=== PATIENT | male | born 1950 | race Caucasian/White ===

== ENCOUNTER 2018-01-29 13:23 | Outpatient (CLI) | payer OTHER | END 2018-01-29 13:24 | disposition home or self-care (01) | LOC: BICRAD 13:23 | PROVIDERS: ATTEND Internal Medicine Cardiovascular Disease | DX: R06.02 Shortness of breath (principal) | CPT/HCPCS: 71046 ==

== ENCOUNTER 2018-03-04 16:39 | Outpatient (CLI) | payer OTHER ==
[2018-03-04 17:37] LABS: Prothrombin Time 12.8 SEC (12.0-14.7)
[2018-03-04 18:01] LABS: ALT (SGPT) 28 U/L (8-55); AST (SGOT) 22 U/L (5-34); Albumin 4.4 g/dL (3.4-4.8); Alkaline Phosphatase 56 U/L (40-150); Anion Gap 11 mmol/L (10-20); BUN (Urea Nitrogen) 15 mg/dL (8.4-25.7); Bilirubin, Total 0.4 mg/dL (0.2-1.2); Calc. Creatinine Clearance 0 mL/min (70-130); Calcium 9.5 mg/dL (7.8-10.44); Carbon Dioxide 27 mmol/L (23-31); Chloride 103 mmol/L (98-107); Estimated GFR-MDRD 64; Globulin 2.6 g/dL (2.4-3.5); Glucose 96 mg/dL (80-115); Potassium 3.8 mmol/L (3.5-5.1); Sodium 137 mmol/L (136-145)
[2018-03-04 18:06] LABS: #Eosinphils 0.1 thou/uL (0.0-0.7); #Lymphocytes 2.6 thou/uL (1.20-3.40); #Monocytes 0.9 thou/uL (0.11-0.59); #Neutrophils 3.4 thou/uL (1.40-6.50); %Basophils 0.5 % (0.0-1.0); %Eosinophils 0.8 % (0.0-10.0); %Lymphocytes 37.5 % (21.0-51.0); %Monocytes 12.4 % (0.0-10.0); %Neutrophils 48.8 % (42.0-75.0); Hemoglobin 14.8 g/dL (14.0-18.0); Mean Corpuscular HGB CONC 33.4 g/dL (32.0-36.0); Mean Corpuscular Hemoglobin 35.2 pg (27.0-31.0); PLT Morphology Comment Appears Adequate; Platelet Count 162 thou/uL (130-400); RBC Distribution Width 12.6 % (11.5-14.5); Red Blood Cell (RBC) Count 4.22 mill/uL (4.70-6.10)
--- NOTE | 2018-03-05 15:17 | EKG ---
Test Reason : Blood Pressure : / mmHG Vent. Rate : 078 BPM Atrial Rate : 078 BPM P-R Int : 208 ms QRS Dur : 108 ms QT Int : 388 ms P-R-T Axes : 049 -06 065 degrees QTc Int : 442 ms Normal sinus rhythm Incomplete right bundle branch block Cannot rule out Anterior infarct , age undetermined Abnormal ECG When compared with ECG of 23-DEC-2005 14:35, Incomplete right bundle branch block has replaced Non-specific intra-ventricular conduction delay Minimal criteria for Anterior infarct are now Present Confirmed by RAFAEL WESTON, SReginaldo ([id number]) on 03/05/2018 3:17:14 PM Referred By: CARMELINA Confirmed By:DR. Misty HALL MD
== END 2018-03-04 16:40 | disposition home or self-care (01) ==
LOC: LABBT 16:39
PROVIDERS: ATTEND Internal Medicine Cardiovascular Disease
DX: Z01.818 Encounter for other preprocedural examination (principal); R94.39 Abnormal result of other cardiovascular function study
CPT/HCPCS: 80053; 85025; 85610; 85730; 93005; 93010

== ENCOUNTER 2018-03-11 06:40 | Day surgery (SDC) | payer OTHER ==
[2018-03-04 16:48] VITALS: BMI 36.8
[2018-03-11] MEDS ORDERED: Lidocaine 1% (PF) 30 ML VIAL ONE (07:21)
[2018-03-11] MEDS ORDERED: Verapamil 5 MG/2 ML VIAL ONE (08:20)
[2018-03-11] MEDS ORDERED: Nitroglycerin 100MG/250ML BOT 250 ML ONE (08:20)
[2018-03-11] MEDS ORDERED: Heparin 10,000 UNITS/1 ML VIAL ONE (08:20)
[2018-03-11] MEDS ORDERED: Midazolam HCl 2 mg/2 ml Vial ONE (08:28)
[2018-03-11] MEDS ORDERED: traMADol HCl 50 MG TAB ONE (09:45)
[2018-03-11] MEDS ORDERED: Iopamidol 370 76% 100 ML VIAL ONE (10:43)
--- NOTE | 2018-03-11 12:54 | RAD ---
CHEST ONE VIEW: History: Pre op. Comparison: 01-29-18 FINDINGS: The lungs are clear. No pneumothorax or effusion. Cardiac silhouette and mediastinal contours are wit hin normal limits. IMPRESSION: No acute intrathoracic abnormality. POS: [facility]
--- NOTE | 2018-03-11 12:54 | CON ---
DATE OF CONSULTATION: 03/11/2018 REASON FOR CONSULTATION: Evaluate the patient for coronary artery bypass grafting. HISTORY OF PRESENT ILLNESS: Mr. Patel is a 67-year-old gentleman who has had progressive shortness of breath and chest pain over the last year. He saw Dr. Ashely who ordered a nuclear stress test. Th is showed reversible anterior ischemia with an ejection fraction of 60%. He underwent cardiac cathet erization today revealing LAD, ramus and diagonal disease. Again, ejection fraction is preserved on ventriculogram. The patient smokes a pack of cigarettes a day and is very proud that he has cut back from 2 packs of cigarettes a day. He is grossly overweight, but says that he is trying to cut back and lose some of his belly. He works in the [employer] business and has noticed that he is not able to do as much of t he usual work and activity that he has been able to do in the past. Currently, he is resting comfortably in the recovery area with no chest pain or shortness of breath. PAST MEDICAL HISTORY: 1. Dyslipidemia. 2. Hypertension. 3. Coronary artery disease. 4. Tobacco abuse. PAST SURGICAL HISTORY: Blepharoplasty. CURRENT MEDICATIONS: 1. Diovan 320 mg every day. 2. [place] Thyroid 120 mg daily. 3. Gabapentin 600 mg daily. 4. Finasteride 5 mg half tablet daily. 5. HCTZ 25 mg 1/2 tablet daily. 6. Protonix 40 mg every day. 7. Lisinopril 10 mg every day. 8. Sulfasalazine 500 mg b.i.d. 9. Metoprolol ER 50 mg daily. 10. Flomax 0.4 mg every day. 11. Advair Diskus 100/50 one puff b.i.d. ALLERGIES: 1. ASPIRIN - this causes severe bleeding from his gums and nose which he has had to be hospitalized for. 2. AUGMENTIN. 3. LEVAQUIN. SOCIAL HISTORY: He is . He works in the [employer] business. He smokes a pack of cigarettes a day. PHYSICAL EXAMINATION: VITAL SIGNS: Height is 5 feet 10 inches, weight 260 pounds, BSA is 2.42. Heart rate is 80 and regul ar, blood pressure is 118/68. HEENT: Sclerae nonicteric. Pupils equal, round bilaterally. The patient smells of nicotine. NECK: Supple. He has no carotid bruits. CHEST: Clear bilaterally. HEART: Rhythm is regular without murmur. ABDOMEN: Obese, soft, and nontender. There are no masses. EXTREMITIES: No edema. VASCULAR: Palpable carotid, radial, femoral, dorsalis pedis pulses bilaterally. VENOUS: There are no venous varicosities or venous stasis changes. LYMPHATICS: He has no lymphedema. PSYCHIATRIC: He is awake, alert, and oriented to person, place and time. LABORATORY DATA: Hemoglobin is 14.8, platelet count 162,000, white blood cell count is 7.0, creatini ne 1.14, potassium is 3.8. Coag profile is normal. ASSESSMENT AND PLAN: This is a 67-year-old gentleman with severe left anterior descending, diagonal, ramus disease, and preserved left ventricular function. Risks, benefits, and options to coronary ar luis bypass grafting have been discussed with he and his and they are agreeable to proceed. We have scheduled him for Friday.
== END 2018-03-11 12:08 | disposition home or self-care (01) ==
LOC: CCL 06:40
PROVIDERS: ATTEND Internal Medicine Cardiovascular Disease
PROC: 4A023N7 Measurement of Cardiac Sampling and Pressure, Left Heart, Percutaneous Approach (ICD-10-PCS; principal; 2018-03-11)
PROC: B2111ZZ Fluoroscopy of Multiple Coronary Arteries using Low Osmolar Contrast (ICD-10-PCS; principal; 2018-03-11)
DX: I25.10 Atherosclerotic heart disease of native coronary artery without angina pectoris (principal); E78.5 Hyperlipidemia, unspecified; I10 Essential (primary) hypertension; F17.210 Nicotine dependence, cigarettes, uncomplicated; G47.39 Other sleep apnea; E03.9 Hypothyroidism, unspecified; Z79.899 Other long term (current) drug therapy
CPT/HCPCS: 71045; 93458; 99152; C1769; J1644; J2001; J2250

== ENCOUNTER 2018-03-16 11:48 | Outpatient (CLI) | payer OTHER | END 2018-03-16 11:49 | disposition home or self-care (01) | LOC: LABBT 11:48 | PROVIDERS: ATTEND Thoracic Surgery (Cardiothoracic Vascular Surgery) | DX: Z01.812 Encounter for preprocedural laboratory examination (principal); I25.10 Atherosclerotic heart disease of native coronary artery without angina pectoris | CPT/HCPCS: 86850; 86900; 86901 ==

== ENCOUNTER 2018-03-16 12:00 | Inpatient (IN) | payer OTHER, MEDICARE ==
[2018-03-17] MEDS ORDERED: Clindamycin/D5W 900 mg/50 ml Premix Bag ONE (06:14)
[2018-03-17] MEDS ORDERED: Albumin 5% 0 ML ONE (06:28)
[2018-03-17] MEDS ORDERED: Aztreonam 1 GM in Sodium Chloride 0.9% 100 ML IVPB SCH (06:30)
[2018-03-17] MEDS ORDERED: Heparin 10,000 UNITS/1 ML VIAL 30,000 UNITS in Sodium Chloride 0.9% 1,000 ML FS SCH (06:45)
[2018-03-17] MEDS ORDERED: Midazolam HCl 2 mg/2 ml Vial ONE (07:15)
[2018-03-17] MEDS ORDERED: Fentanyl 250 MCG/5 ML VIAL ONE (07:15)
[2018-03-17] MEDS ORDERED: Rocuronium Bromide 50 MG/5 ML VIAL ONE (09:26)
[2018-03-17] MEDS ORDERED: Acetaminophen 325 MG TAB PO PRN (11:39)
[2018-03-17] MEDS ORDERED: Guaifenesin DM 100-10/5 ML UDCUP PO PRN (11:39)
[2018-03-17] MEDS ORDERED: Bisacodyl 10 MG SUPP PR PRN (11:39)
[2018-03-17] MEDS ORDERED: Bisacodyl 5 MG TAB PO PRN (11:39)
[2018-03-17] MEDS ORDERED: Phenylephrine 10 MG/NS 250 ML 250 ML IVPB PRN (11:39)
[2018-03-17] MEDS ORDERED: Promethazine HCl 25 MG/ML VIAL IM PRN (11:39)
[2018-03-17] MEDS ORDERED: HYDROcodone/Acetaminophen 5/325 mg Tablet PO PRN ×2 (11:39)
[2018-03-17] MEDS ORDERED: Nitroglycerin 50 MG/250 ML BOT 250 ML IVPB PRN (11:39)
[2018-03-17] MEDS ORDERED: Ondansetron HCl/PF 4 MG/2 ML Vial IVP PRN (11:39)
[2018-03-17] MEDS ORDERED: Fentanyl 100 MCG/2 ML VIAL SLOW IVP PRN ×2 (11:39)
[2018-03-17] MEDS ORDERED: Hetastarch 6% 500 ML 500 ML IVPB PRN (11:39)
[2018-03-17] MEDS ORDERED: Mag-Al 1200 mg/1200 mg/30 ML UDCUP PO PRN (11:39)
[2018-03-17] MEDS ORDERED: Morphine 2 MG/ML SYRINGE SLOW IVP PRN (11:39)
[2018-03-17] MEDS ORDERED: Potassium Chloride 20 MEQ/100 ML PREMIX BAG IVPB PRN (11:39)
[2018-03-17] MEDS ORDERED: hydrALAZINE 20 MG/ML VIAL SLOW IVP PRN (11:39)
[2018-03-17] MEDS ORDERED: Magnesium 2 GM/50 ML 2 GM in Premix Bag 1 BAG IVPB SCH (11:45)
[2018-03-17 11:52] LABS: Actual Bicarbonate (HCO3a) 23.2 mEq/L (22-28); Base Excess (BEa) -3.7 mEq/L (-2.0 to +3.0); CO2 Tension 49.4 mmHg (35.0-45.0); Calcium, Ionized 1.09 mmol/L (1.12-1.30); Hemoglobin (Hb) 13.4 g/dL (14.0-18.0); O2 Tension (PaO2) 67.8 mmHg (> 80.0); Potassium - ABG Lab 4.33 mmol/L (3.70-5.30); pH, Arterial 7.29 (7.35-7.45)
[2018-03-17] MEDS ORDERED: Dextrose 50% Abboject 50 ML SYRINGE SLOW IVP PRN (11:56)
[2018-03-17] MEDS ORDERED: Dextrose 5% in Water 1,000 ML IV PRN (11:56)
[2018-03-17 12:05] LABS: Puncture Site LINE
[2018-03-17 12:10] LABS: INR-International Normal Ratio 1.3; PTT 30.2 SEC (22.9-36.1); Prothrombin Time 15.8 SEC (12.0-14.7)
[2018-03-17] MEDS: D5 1/2 NS w/20 mEq KCL 1,000 ML IV SCH (12:19)
[2018-03-17] MEDS: Ketorolac Tromethamine 30 MG/ML VIAL IVP SCH ×3 (12:21→23:18)
[2018-03-17] MEDS: Insulin Regular 300 UNITS/3 ML VIAL SC PRN ×3 (12:26→20:08)
[2018-03-17 12:33] LABS: Band 4 % (5-11); Eosinophils 1 % (0-10); Lymphocytes 21 % (21-51); MDiff Complete? YES; Mean Corpuscular HGB CONC 34.2 g/dL (32.0-36.0); Mean Corpuscular Hemoglobin 36.5 pg (27.0-31.0); Mean Platelet Volume 6.6 fL (7.4-10.4); Monocytes 13 % (0-10); Neutrophil 61 % (42-75); PLT Morphology Comment Appears Decreased; Platelet Count 95 thou/uL (130-400); RBC Distribution Width 12.5 % (11.5-14.5); Red Blood Cell (RBC) Count 3.57 mill/uL (4.70-6.10); White Blood Cell (WBC) Count 9.3 thou/uL (4.8-10.8)
[2018-03-17] MEDS: Clindamycin/D5W 900 MG in Premix Bag 1 BAG IVPB SCH ×3 (12:34→23:19)
[2018-03-17 12:35] LABS: Anion Gap 11 mmol/L (10-20); BUN (Urea Nitrogen) 12 mg/dL (8.4-25.7); Calc. Creatinine Clearance 139 mL/min (70-130); Calcium 7.8 mg/dL (7.8-10.44); Carbon Dioxide 23 mmol/L (23-31); Chloride 110 mmol/L (98-107); Estimated GFR-MDRD 88; Glucose 151 mg/dL (80-115); Potassium 4.4 mmol/L (3.5-5.1); Sodium 140 mmol/L (136-145)
[2018-03-17] MEDS ORDERED: Propofol 1,000 MG/100 ML VIAL IV ONE (12:51)
[2018-03-17] MEDS ORDERED: Mannitol 12.5 GM/50 ML ONE (12:55)
[2018-03-17] MEDS ORDERED: Heparin 5,000 UNITS/ML VIAL ONE (12:55)
[2018-03-17] MEDS ORDERED: Magnesium 5 GM/10 ML VIAL ONE (12:55)
[2018-03-17] MEDS ORDERED: Potassium Chloride 60 MEQ/30 ML VIAL ONE (12:55)
[2018-03-17] MEDS ORDERED: Protamine Sulfate 250 MG/25 ML VIAL ONE (12:55)
[2018-03-17] MEDS ORDERED: Cardioplegic Soln 1,000 ML BAG ONE (12:55)
[2018-03-17] MEDS ORDERED: Thrombin 5000 UNITS/5 ML VIAL ONE (12:55)
[2018-03-17] MEDS ORDERED: Sodium Bicarb 50 MEQ/50 ML VIAL ONE (12:55)
[2018-03-17] MEDS ORDERED: Papaverine 60 MG/2 ML VIAL ONE (12:55)
[2018-03-17] MEDS ORDERED: Heparin 30,000 units/30 ml VIAL ONE (12:55)
[2018-03-17] MEDS ORDERED: Ondansetron HCl/PF 4 MG/2 ML Vial ONE (12:55)
[2018-03-17] MEDS ORDERED: Aminocaproic Acid 5 GM/20 ML VIAL ONE (12:55)
[2018-03-17] MEDS ORDERED: PROPOFOL 200 MG/20 ML VIAL ONE (12:55)
[2018-03-17] MEDS ORDERED: Calcium Chloride 1 GM/10 ML Abboject SYRINGE ONE (12:55)
[2018-03-17] MEDS ORDERED: PHENYLEPHRINE-NS 100 MCG/ML 10 ML SYRINGE ONE (12:55)
[2018-03-17] MEDS ORDERED: Lidocaine 2% PF 100 mg/5 ml Syringe ONE (12:55)
[2018-03-17] MEDS ORDERED: Lorazepam 2 MG/ML VIAL SLOW IVP PRN (13:30)
[2018-03-17] MEDS ORDERED: Fentanyl BOLUS 250 ML IVPB PRN (13:30)
[2018-03-17] MEDS ORDERED: Propofol BOLUS 1,000 MG/100 ML VIAL IV PRN (13:30)
[2018-03-17] MEDS ORDERED: DISCONTINUE PREVIOUS NARCOTIC PAIN MEDICATIONS AND BENZODIAZEPINES FS SCH (13:30)
--- NOTE | 2018-03-17 13:30 | OP ---
DATE OF SURGERY: 03/17/2018 PREOPERATIVE DIAGNOSES: Coronary artery disease/hypertension/hyperlipidemia/ obesity/tobacco abuse. POSTOPERATIVE DIAGNOSES: Coronary artery disease/hypertension/hyperlipidemia/ obesity/tobacco abuse. PROCEDURE: Coronary artery bypass grafting x3: 1. Left internal mammary artery to 1.0 mm distal LAD at the apex. There is good conduit, small target. 2. Reverse saphenous vein to 1.5 mm D1 - good conduit and target. 3. Reverse saphenous vein to 2.5 mm ramus - good conduit and target. SURGEON: Brian Matthews M.D. and Edmundo Thorpe MD. ANESTHESIA: General endotracheal - Dr. Jorge L Quick. PUMP TIME: 70 minutes. CROSS-CLAMP TIME: 49 minutes. LOW CORE TEMP: 32-degree Celsius. SHAREPOINT ENGINEER: Anthony Cash. DRAINS: 24-Occitan chest tubes x2. DRIPS: None. TRANSFUSIONS: None. PROCEDURE IN DETAIL: After consent was obtained, the patient was brought to the operating room, and placed in the supine position on the operating room table. Appropriate anesthetic monitor was placed and general endotracheal anesthesia induced. Chest, abdomen, and legs were prepped and draped in usual sterile fashion. Using endoscopic technique, the left greater saphenous vein was harvested from the thigh. Wounds were irrigated and closed in layers. Median sternotomy was performed. Left internal mammary artery was harvested as a pedicle graft. The patient was systemically heparinized. Distal pedicle was divided and infused with papaverine. Thymic fat and pericardium were divided with electrocautery. Pericardial stay sutures were placed. Aortic and atrial cannulation was performed. After adequate heparinization, retrograde prime was performed. The patient was placed on cardiopulmonary bypass. Distal targets were marked. The LAD was intramyocardial for its full length until it came to the apex where it became extra myocardial at that point. Aortic cross-clamp was applied and antegrade sanguinous cardioplegic arrest obtained. A 1200 mL of del nido cardioplegia was given. Topical cold solution was used. Reverse saphenous vein was anastomosed to ramus in end-to-side fashion with running 7-0 Prolene suture. Anastomosis tested and was found hemostatic. Reverse saphenous vein was anastomosed to the diagonal in end-to-side fashion with running 7-0 Prolene suture. Anastomosis was tested and was hemostatic. Mammary artery was brought through a window in the pericardium and anastomosed to LAD in end-to-side fashion with running 7-0 Prolene suture. On release of mammary clamp, there was some bleeding which I cannot control. It looked like there was a tear from a stitch in the sidewall of the mammary artery. Mammary anastomosis was then taken down and redone. Prior to completion, a 1mm probe passed through the proximal and distal LAD without difficulty. On release of mammary clamps, there was good hooding of the anastamosis, good hemostasis and good antegrade flow. Pedicle screw with interrupted 6-0 Prolene suture. Cross- clamp was removed and partial occluding clamp placed. Saphenous vein was anastomosed to individual punch sites with running 6-0 Prolene suture. Partial occluding clamp was removed and grafts deaired. Anastomoses were inspected for hemostasis, which was good. The patient was warmed and weaned from cardiopulmonary bypass. After resumption of sinus rhythm, good hemodynamics, and temperature greater than 36.5, bypass was discontinued. Transfusions were given. Decannulation was performed and pursestring sutures secured. Protamine was administered. After adequate hemostasis had been obtained, 24-Occitan chest tubes x2 were placed in mediastinum. The sternum was treated with vancomycin paste. Again, mediastinum was inspected for hemostasis. The sternum was then closed with #7 wire, 3 in the manubrium and 1 in the distal sternum, and four zip ties through the body of the sternum. Sternum was treated with platelet- rich plasma and wires twisted. Zip ties were tightened and cut. Wounds irrigated, treated with platelet-poor plasma, and closed in multiple layers. Needle, sponge, and instrument counts were reported as correct at the end of the procedure. The patient was transferred to the intensive care unit in stable , but critical condition. [facility]
[2018-03-17] MEDS ORDERED: Morphine 4 MG/ML VIAL SLOW IVP PRN (13:32)
--- NOTE | 2018-03-17 13:40 | RAD ---
FRONTAL VIEW CHEST: Date: 03/17/18 COMPARISON: 03/11/18. CLINICAL INDICATION: Status post open heart surgery. FINDINGS: There is an endotracheal tube with tip between thoracic inlet and grecia. A right subclavian venous c atheter is present with tip overlying the right atrial region. There is catheter tubing overlying the mediastinum and the left chest. Cardiomediastinal silhouette and pulmonary vasculature are enlarged. Lungs are hypoinflated with obscuration of lung bases. Patchy density is seen adjacent to the left h eart border and each perihilar region indicating edema and possibly superimposed left basilar atelect asis/pneumonitis. IMPRESSION: 1. Postoperative chest as above. 2. Findings which indicate edema. Superimposed left basilar atelectasis/pneumonitis not excluded. Co ntinued follow-up is warranted. POS: [facility]
[2018-03-17] MEDS ORDERED: methylPREDNISolone Sod Succ/PF 125 MG/2 ML VIAL IVP SCH (14:15)
[2018-03-17] MEDS: Vancomycin HCl 1.5 GM in Sodium Chloride 0.9% 250 ML 300 ML IVPB SCH (14:26)
[2018-03-17] MEDS: Budesonide 0.5 MG/2 ML NEB INH SCH ×2 (15:04→18:40)
[2018-03-17] MEDS: fentaNYL Citrate/PF 2,000 MCG in Sodium Chloride 0.9% 60 ML IV SCH (15:40)
[2018-03-17] MEDS: Propofol 1,000 MG/100 ML VIAL IV PRN ×2 (16:51→20:13)
[2018-03-17] MEDS: Diabetic Tussin 200 MG/10 ML UDCUP PO SCH ×2 (17:41→20:09)
[2018-03-17 17:52] LABS: Hemoglobin 13.5 g/dL (14.0-18.0)
[2018-03-17] MEDS ORDERED: Prevnar 13-Val Conj/PF 0.5 ML SYRINGE IM ONE (18:00)
[2018-03-17 18:10] LABS: Potassium 4.9 mmol/L (3.5-5.1)
[2018-03-17] MEDS: Famotidine/PF 20 mg/2ml Vial SLOW IVP SCH (20:09)
[2018-03-17] MEDS: Norepinephrine 8 MG/0.9% NS 250 ML IVPB PRN (20:18)
--- NOTE | 2018-03-17 22:15 | CON ---
DATE OF SERVICE: 03/17/2018 SUBJECTIVE: Zoran Patel is a gentleman admitted electively for bypass. He had his last cigarette in the parking lot prior to walking into the hospital this morning. He has successfully undergone bypass grafting. He was examined in the Critical Care Unit while he is still mechanically ventilated. He is unable to provide history. PAST MEDICAL HISTORY: 1. Remarkable for smoking up to 2 packs a day. 2. He has a lipid disorder. 3. History of hypertension. 4. History of hypothyroidism. 5. History of reflux disease. 6. Benign prostatic hypertrophy. ALLERGIES: He reports allergies to ASPIRIN, AUGMENTIN and LEVAQUIN. SOCIAL HISTORY: As mentioned, he smoked this morning. He is not a daily drinker. He apparently has 2 sons who are reportedly . FAMILY HISTORY: Negative for lung disease in early age. REVIEW OF SYSTEMS: Not obtainable. PHYSICAL EXAMINATION: GENERAL: He had awakened after surgery and then was sedated because of coughing and tachypnea. VITAL SIGNS: He is afebrile now, heart rate is 102, blood pressure 155/70, respiratory rate is 12, o ximetry is 96%. HEENT: Pupils are equal. Sclerae anicteric. LUNGS: Remarkable for coarse wheezes diffusely. HEART: Regular rhythm. S1 and S2 are audible. ABDOMEN: Soft and nontender. EXTREMITIES: Without clubbing, cyanosis, or edema. IMAGING: Chest radiograph is suggestive of mild edema. IMPRESSION: Bronchospasm postoperatively that could be related to volume or could be related to unde rlying obstructive lung disease. RECOMMENDATIONS: Recommended one dose of steroids and nebulizer treatments as well as guaifenesin. I have recommended he not be weaned overnight per the protocol. We will reassess him in the morning and hopefully we can extubate him in the morning. I discussed the above with his surgeon. Critical care time: Thirty minutes.
[2018-03-18] MEDS: Insulin Regular 300 UNITS/3 ML VIAL SC PRN ×3 (00:11→20:25)
[2018-03-18] MEDS: Propofol 1,000 MG/100 ML VIAL IV PRN ×6 (00:59→20:15)
[2018-03-18] MEDS: Diabetic Tussin 200 MG/10 ML UDCUP PO SCH ×6 (01:28→20:13)
[2018-03-18] MEDS: Vancomycin HCl 1.5 GM in Sodium Chloride 0.9% 250 ML 300 ML IVPB SCH (01:28)
[2018-03-18] MEDS: Clindamycin/D5W 900 MG in Premix Bag 1 BAG IVPB SCH (05:30)
[2018-03-18] MEDS: Ketorolac Tromethamine 30 MG/ML VIAL IVP SCH ×4 (05:31→23:36)
[2018-03-18 06:00] LABS: #Lymphocytes 1.7 thou/uL (1.20-3.40); #Monocytes 1.6 thou/uL (0.11-0.59); #Neutrophils 8.5 thou/uL (1.40-6.50); %Basophils 0.2 % (0.0-1.0); %Eosinophils 0.2 % (0.0-10.0); %Monocytes 13.8 % (0.0-10.0); %Neutrophils 71.8 % (42.0-75.0); Hemoglobin 12.2 g/dL (14.0-18.0); Mean Corpuscular HGB CONC 34.3 g/dL (32.0-36.0); Mean Corpuscular Hemoglobin 36.5 pg (27.0-31.0); Mean Platelet Volume 6.8 fL (7.4-10.4); Platelet Count 124 thou/uL (130-400); RBC Distribution Width 12.4 % (11.5-14.5); Red Blood Cell (RBC) Count 3.33 mill/uL (4.70-6.10); White Blood Cell (WBC) Count 11.8 thou/uL (4.8-10.8)
[2018-03-18 06:31] LABS: Anion Gap 12 mmol/L (10-20); BUN (Urea Nitrogen) 13 mg/dL (8.4-25.7); Calc. Creatinine Clearance 121 mL/min (70-130); Calcium 7.9 mg/dL (7.8-10.44); Carbon Dioxide 20 mmol/L (23-31); Chloride 110 mmol/L (98-107); Estimated GFR-MDRD 76; Glucose 150 mg/dL (80-115); Potassium 4.2 mmol/L (3.5-5.1); Sodium 138 mmol/L (136-145)
[2018-03-18 06:40] LABS: Actual Bicarbonate (HCO3a) 23.6 mEq/L (22-28); Base Excess (BEa) -2.6 mEq/L (-2.0 to +3.0); CO2 Tension 46.8 mmHg (35.0-45.0); Calcium, Ionized 1.09 mmol/L (1.12-1.30); Carboxyhemoglobin (COHb) 1.4 gm% (0.0-3.0); Hemoglobin (Hb) 11.8 g/dL (14.0-18.0); O2 Tension (PaO2) 95.6 mmHg (> 80.0); Potassium - ABG Lab 4.32 mmol/L (3.70-5.30); pH, Arterial 7.32 (7.35-7.45)
[2018-03-18 06:44] LABS: Puncture Site ALINE
[2018-03-18] MEDS: Budesonide 0.5 MG/2 ML NEB INH SCH ×4 (07:12→18:54)
[2018-03-18] MEDS: Norepinephrine 8 MG/0.9% NS 250 ML IVPB PRN ×2 (07:14→17:28)
--- NOTE | 2018-03-18 08:36 | RAD ---
SINGLE VIEW OF THE CHEST: Comparison: 03-17-18 History: Status post open heart surgery. FINDINGS: Single view of the chest shows an enlarged but stable cardiomediastinal silhouette. The lines and tub es are unchanged in position. The patient is status post sternotomy. There is no evidence of consolid ation, mass, pneumothorax, or pleural effusions. IMPRESSION: Stable exam. POS: [facility]
[2018-03-18] MEDS: Magnesium 2 GM/50 ML 2 GM in Premix Bag 1 BAG IVPB SCH (09:16)
[2018-03-18] MEDS: Famotidine/PF 20 mg/2ml Vial SLOW IVP SCH ×2 (09:16→20:13)
[2018-03-18] MEDS: D5 1/2 NS w/20 mEq KCL 1,000 ML IV SCH ×2 (09:17→20:15)
--- NOTE | 2018-03-18 10:59 | PDOC.CTH ---
<Dyana Jones - Last Filed: 03/18/18 10:52> Cardiology Progress Note - Subjective The pt seen and examined. No overnight events. He is still on mechanical vent with sedation. - Objective Vital Signs Temp Pulse Resp BP Pulse Ox 03/18/18 10:40 77 118/57 L 03/18/18 10:00 16 03/18/18 09:02 79 129/61 03/18/18 08:00 98.5 F 14 97 03/18/18 07:12 80 93/46 L 03/18/18 06:00 12 03/18/18 04:00 98.5 F 19 03/18/18 02:00 12 03/18/18 01:59 98 83/51 L 03/18/18 00:00 98.1 F 12 Weight 257 lb 15.053 oz 03/17/18 03/18/18 03/19/18 06:59 06:59 06:59 Intake Total 3553.6 60 Output Total 1455 335 Balance 2098.6 -275 - Physical Examination Lungs: other: (coarses and diminished at bases) Heart: RRR Abdomen: soft Extremities: other: (No edema) - Telemetry Telemetry Rhythm: SR - Labs Result Diagrams: 03/18/18 04:25 03/18/18 04:25 - Assessment/Plan 1. CAD with S/p CABG x 3 on 03/17/18 with HANSEN-distal LAD, RSVG-D1, and RSVG- Ramus; No BBlocker or SMOOTH at this moment due to Hypotensive. He is on Livephed 16mcg/min. Cont. to monitor on tele 2. HTN - stable with Levaphed 3. Hyperlipidemia - Start Lipitor 40mg qd 4. Hypothyroidism - 5. BPH - 6. Current smoker - He is on Vent due to severe cough; He must start smoking cessation. MAR reviewed Review of Systems - Review of Systems Constitutional: reports: see HPI EENTM: reports: see HPI Respiratory: reports: see HPI Cardiac (ROS): reports: see HPI ABD/GI: reports: see HPI <Dev Ashley - Last Filed: 03/18/18 18:33> Cardiology Progress Note - Objective Vital Signs Temp Pulse Resp BP Pulse Ox 03/18/18 17:06 100 03/18/18 16:00 18 03/18/18 14:33 85 112/56 L 03/18/18 14:00 16 96 03/18/18 12:00 98.6 F 18 03/18/18 11:00 98.6 F 03/18/18 10:40 77 118/57 L 03/18/18 10:00 16 03/18/18 09:02 79 129/61 03/18/18 08:00 98.5 F 14 97 03/18/18 07:12 80 93/46 L Weight 257 lb 15.053 oz 03/17/18 03/18/18 03/19/18 06:59 06:59 06:59 Intake Total 3553.6 1314.85 Output Total 1455 825 Balance 2098.6 489.85 - Labs Result Diagrams: 03/18/18 04:25 03/18/18 04:25 - Assessment/Plan pt. seen and eval. by me. I agree with the A/P by the TOOL AND DIE MACHINIST.Chest clear anteriorly. RRR. No edema. Stable s/p CABG.
[2018-03-18] MEDS ORDERED: Scopolamine 1.5 mg/72 hour Patch TD SCH (13:00)
[2018-03-18] MEDS ORDERED: Magnesium Sulfate 3 GM in Sodium Chloride 0.9% 100 ML IVPB SCH (13:00)
[2018-03-18] MEDS ORDERED: methylPREDNISolone Sod Succ/PF 125 MG/2 ML VIAL IVP SCH (15:00)
--- NOTE | 2018-03-18 15:59 | PRG ---
DATE OF SERVICE: 03/18/2018 SUBJECTIVE: Zoran Patel remains sedated for mechanical ventilation. He will be given another dose of steroids today, as he is quite bronchospastic this morning. I met his at the bedside. She says he did smoke downstairs before he came in, but he was smokin g the night before his surgery. He has quit in the past for 8 months, but she says several doctors told him that he was having nicoti ne withdrawal when he started swelling, so he started smoking again. I have explained to her that it is imperative that he never smoke again since he has had bypass surgery. OBJECTIVE: VITAL SIGNS: His blood pressure is 112/56 and heart rate is 85. Intake and output are positive 2097 . LUNGS: Remarkable for faint wheezes bilaterally. CARDIOVASCULAR: Regular rhythm. S1 and S2 are normal. ABDOMEN: Soft and nontender. EXTREMITIES: Without clubbing, cyanosis, or edema. He moves all 4 extremities. LABORATORY DATA: White count 11.8, hemoglobin 12.2, platelets 124,000. Sodium 138, potassium 4.2, chloride 110, bicarbonate 20, BUN 13, creatinine 0.99, pH 7.32, CO2 of 46, pO2 of 95. IMPRESSION: 1. Status post coronary artery bypass grafting. 2. Chronic obstructive pulmonary disease exacerbation with tobacco use up until the night before [facility]. PLAN: Continue neb treatment. He will receive another dose of IV Solu-Medrol today. He received ma gnesium earlier today. He will remain mechanically ventilated until we are sure his bronchospasm is improved. Critical care time, 30 minutes.
[2018-03-18] MEDS: fentaNYL Citrate/PF 2,000 MCG in Sodium Chloride 0.9% 60 ML IV SCH (18:39)
[2018-03-18] MEDS: Atorvastatin Calcium 40 MG TAB PO SCH (20:13)
[2018-03-19] MEDS: Diabetic Tussin 200 MG/10 ML UDCUP PO SCH ×6 (00:54→22:34)
[2018-03-19] MEDS: Propofol 1,000 MG/100 ML VIAL IV PRN ×5 (01:01→22:35)
[2018-03-19] MEDS: Insulin Regular 300 UNITS/3 ML VIAL SC PRN ×4 (01:08→12:03)
[2018-03-19] MEDS: Ketorolac Tromethamine 30 MG/ML VIAL IVP SCH ×3 (05:18→17:05)
[2018-03-19 05:57] LABS: Band 7 % (5-11); Hemoglobin 10.8 g/dL (14.0-18.0); Lymphocytes 15 % (21-51); MDiff Complete? YES; Mean Corpuscular HGB CONC 34.4 g/dL (32.0-36.0); Mean Corpuscular Hemoglobin 36.9 pg (27.0-31.0); Mean Platelet Volume 6.6 fL (7.4-10.4); Monocytes 19 % (0-10); Neutrophil 59 % (42-75); PLT Morphology Comment Appears Decreased; Platelet Count 108 thou/uL (130-400); RBC Distribution Width 12.4 % (11.5-14.5); Red Blood Cell (RBC) Count 2.94 mill/uL (4.70-6.10); White Blood Cell (WBC) Count 11.4 thou/uL (4.8-10.8)
[2018-03-19 05:58] LABS: Anion Gap 10 mmol/L (10-20); BUN (Urea Nitrogen) 13 mg/dL (8.4-25.7); Calc. Creatinine Clearance 121 mL/min (70-130); Calcium 8.3 mg/dL (7.8-10.44); Carbon Dioxide 23 mmol/L (23-31); Chloride 110 mmol/L (98-107); Estimated GFR-MDRD 73; Glucose 165 mg/dL (80-115); Potassium 4.8 mmol/L (3.5-5.1); Sodium 138 mmol/L (136-145)
[2018-03-19] MEDS: Norepinephrine 8 MG/0.9% NS 250 ML IVPB PRN (05:59)
[2018-03-19] MEDS: Budesonide 0.5 MG/2 ML NEB INH SCH ×4 (07:00→19:04)
[2018-03-19 07:14] LABS: Actual Bicarbonate (HCO3a) 22.3 mEq/L (22-28); Base Excess (BEa) -3.1 mEq/L (-2.0 to +3.0); CO2 Tension 41.3 mmHg (35.0-45.0); Calcium, Ionized 1.12 mmol/L (1.12-1.30); Carboxyhemoglobin (COHb) 0.9 gm% (0.0-3.0); Potassium - ABG Lab 4.56 mmol/L (3.70-5.30); pH, Arterial 7.35 (7.35-7.45)
[2018-03-19 07:16] LABS: ALV-art Gradient 267.525 (0-20); Puncture Site LINE
--- NOTE | 2018-03-19 08:15 | RAD ---
PORTABLE CHEST: HISTORY: Respiratory distress. COMPARISON: Prior day's exam. FINDINGS: Heart size appears enlarged. Postop sternotomy change. Endotracheal tube is in satisfactory positio n. The right subclavian line is unchanged in position. The interstitial alveolar lung changes in th e left lung appear slightly increased as compared to the prior exam. IMPRESSION: Increasing parenchymal changes in the left lung as compared to the prior exam. POS: [facility]
[2018-03-19] MEDS ORDERED: methylPREDNISolone Sod Succ/PF 125 MG/2 ML VIAL IVP SCH (09:00)
[2018-03-19] MEDS: Famotidine/PF 20 mg/2ml Vial SLOW IVP SCH ×2 (09:03→22:34)
[2018-03-19] MEDS: Magnesium 2 GM/50 ML 2 GM in Premix Bag 1 BAG IVPB SCH (09:03)
[2018-03-19 09:42] VITALS: BMI 36.9
--- NOTE | 2018-03-19 12:47 | PDOC.CTH ---
<Dyana Jones - Last Filed: 03/19/18 12:45> Cardiology Progress Note - Subjective The pt seen and examined. No overnight events. Per the pt's , the pt might be extubated tomorrow. - Objective Vital Signs Temp Pulse Resp BP Pulse Ox 03/19/18 11:00 88 128/82 03/19/18 10:59 87 23 H 92 L 03/19/18 10:58 87 23 H 92 L 03/19/18 10:00 13 03/19/18 08:00 98.8 F 14 94 L 03/19/18 07:00 78 17 111/56 L 93 L 03/19/18 06:59 79 17 93 L 03/19/18 06:00 16 03/19/18 05:00 98.3 F 03/19/18 04:00 12 03/19/18 02:05 75 101/64 03/19/18 02:00 16 Admit Weight 260 lb Weight 263 lb 14.293 oz 03/18/18 03/19/18 03/20/18 06:59 06:59 06:59 Intake Total 3553.6 2212.85 Output Total 1455 1515 380 Balance 2098.6 697.85 -380 - Physical Examination Lungs: other: (very diminished at bases) Heart: RRR Abdomen: soft Extremities: other: (No edema) - Telemetry Telemetry Rhythm: SR - Labs Result Diagrams: 03/19/18 05:15 03/19/18 05:15 - Assessment/Plan 1. CAD with S/p CABG x 3 on 03/17/18 with HANSEN-distal LAD, RSVG-D1, and RSVG- Ramus; No BBlocker or SMOOTH at this moment due to Hypotensive. He is on Livephed IV. Cont. to monitor on tele 2. HTN - stable with Levaphed 3. Hyperlipidemia - Start Lipitor 40mg qd 4. Hypothyroidism - 5. BPH - 6. Current smoker - He is on Vent due to severe cough; He must start smoking cessation. 7. COPD ex. - managed by director of epidemiology CR[facility] reviewed Review of Systems - Review of Systems Constitutional: reports: see HPI EENTM: reports: see HPI Respiratory: reports: see HPI Cardiac (ROS): reports: see HPI ABD/GI: reports: see HPI <Dev Ashley - Last Filed: 03/19/18 16:32> Cardiology Progress Note - Objective Vital Signs Temp Pulse Resp BP Pulse Ox 03/19/18 14:59 79 106/67 03/19/18 14:58 73 22 H 93 L 03/19/18 14:57 79 22 H 93 L 03/19/18 14:00 14 03/19/18 12:00 98.9 F 13 03/19/18 11:00 88 128/82 03/19/18 10:59 87 23 H 92 L 03/19/18 10:58 87 23 H 92 L 03/19/18 10:00 13 03/19/18 08:00 98.8 F 14 94 L 03/19/18 07:00 78 17 111/56 L 93 L 03/19/18 06:59 79 17 93 L 03/19/18 06:00 16 03/19/18 05:00 98.3 F Admit Weight 260 lb Weight 263 lb 14.293 oz 03/18/18 03/19/18 03/20/18 06:59 06:59 06:59 Intake Total 3553.6 2212.85 Output Total 1455 1515 665 Balance 2098.6 697.85 -665 - Labs Result Diagrams: 03/19/18 05:15 03/19/18 05:15 - Assessment/Plan Pt. seen and eval. by me. I agree with the A/P by the ACCOUNT ADJUSTER. Hopefully he can be extubated soon and that he will not have excsessive coughing.Chest is clear anteriorly. RRR.
--- NOTE | 2018-03-19 16:50 | PRG ---
DATE OF SERVICE: 03/19/2018 SUBJECTIVE: Amanda wakes up, started coughing violently. He still bronchospastic today. He is improved compared to yesterday. I met with his and answered all of her questions. OBJECTIVE: VITAL SIGNS: Blood pressure 113/60, heart rate 87, respiratory rates in the 20s. His minute volumes around 8 liters a minute when he is asleep. Intake and output is positive 697. LUNGS: Remarkable for diffuse mild wheezes. CARDIOVASCULAR: Regular rhythm. ABDOMEN: Soft. Chest radiographs, hazy at the left base. IMPRESSION: 1. Probable chronic obstructive pulmonary disease with exacerbation. 2. Haziness at his left base, which could simply be a postop pleural effusion and blood. It also co uld be the beginning of an infectious process, so we will start him on antimicrobial therapy. I am h oping by tomorrow, we can wake him up. Precedex was started today. Hopefully, this allow minimal se dation with all the coughing.
[2018-03-19] MEDS: cefTRIAXone\\ROCEPHIN 2 GM in Sodium Chloride 0.9% 100 ML IVPB SCH (17:08)
[2018-03-19] MEDS: Atorvastatin Calcium 40 MG TAB PO SCH (22:35)
[2018-03-20] MEDS: Ketorolac Tromethamine 30 MG/ML VIAL IVP SCH ×3 (00:03→12:50)
[2018-03-20] MEDS: D5 1/2 NS w/20 mEq KCL 1,000 ML IV SCH (00:04)
[2018-03-20] MEDS ORDERED: Propofol 1,000 MG/100 ML VIAL IV ONE (04:13)
[2018-03-20] MEDS: Budesonide 0.5 MG/2 ML NEB INH SCH ×4 (07:23→19:08)
[2018-03-20] MEDS ORDERED: Furosemide 40 MG/4 ML VIAL ONE (07:53)
[2018-03-20] MEDS ORDERED: Haloperidol Lactate 5 MG/ML VIAL ONE (07:53)
[2018-03-20] MEDS ORDERED: Potassium Chloride 20 MEQ in Premix Bag 1 BAG IVPB SCH (09:45)
[2018-03-20] MEDS: Famotidine/PF 20 mg/2ml Vial SLOW IVP SCH (09:45)
--- NOTE | 2018-03-20 10:52 | PRG ---
DATE OF SERVICE: 03/20/2018 Mr. Patel self-extubated this morning. He is pulling at his restraints, there are concerns he will pull everything else out. He actually was oriented and just said he is claustrophobic. We have explained to him that until he calms down he will not have his restraints removed. PHYSICAL EXAMINATION: VITAL SIGNS: His vital signs are stable. LUNGS: He has no wheezes this morning fortunately. HEART: Regular rhythm. ABDOMEN: Abdomen is soft. IMPRESSION: Labs are not available since the computer system is down. IMPRESSION: 1. Status post prolonged period of bronchospasm after coronary bypass grafting. 2. Status post coronary bypass grafting. 3. Tobacco use up until the night before his heart surgery. He is stable for now. He needs to remain in the Critical Care Unit. He will be given 1 dose of Hald ol 10 mg IM this morning.
--- NOTE | 2018-03-20 11:45 | RAD ---
CHEST ONE VIEW: HISTORY: Heart surgery. Followup. COMPARISON: 03/19/2018 FINDINGS: The cardiac silhouette is magnified and enlarged. The pulmonary vasculature remain engorged with pat brady bibasilar atelectasis and infiltrate. Consolidation at the left base is less pronounced. The pu lmonary vasculature remains engorged. Lines and tubes are unchanged in position. vehicle monitor technician le ads overly the chest. IMPRESSION: Improving aeration of the left base; otherwise, stable postoperative appearance of the chest. POS: [facility]
[2018-03-20] MEDS: Diabetic Tussin 200 MG/10 ML UDCUP PO SCH ×5 (12:07→21:23)
[2018-03-20 12:40] LABS: Anion Gap 12 mmol/L (10-20); BUN (Urea Nitrogen) 24 mg/dL (8.4-25.7); Calc. Creatinine Clearance 115 mL/min (70-130); Calcium 8.8 mg/dL (7.8-10.44); Carbon Dioxide 22 mmol/L (23-31); Chloride 108 mmol/L (98-107); Estimated GFR-MDRD 69; Glucose 192 mg/dL (80-115); Potassium 4.9 mmol/L (3.5-5.1); Sodium 137 mmol/L (136-145)
[2018-03-20 15:31] LABS: Anion Gap 12 mmol/L (10-20); BUN (Urea Nitrogen) 27 mg/dL (8.4-25.7); Calc. Creatinine Clearance 112 mL/min (70-130); Calcium 9.1 mg/dL (7.8-10.44); Carbon Dioxide 22 mmol/L (23-31); Chloride 108 mmol/L (98-107); Estimated GFR-MDRD 67; Potassium 4.3 mmol/L (3.5-5.1); Sodium 138 mmol/L (136-145)
[2018-03-20 15:32] LABS: Glucose 183 mg/dL (80-115)
[2018-03-20] MEDS: cefTRIAXone\\ROCEPHIN 2 GM in Sodium Chloride 0.9% 100 ML IVPB SCH (17:12)
[2018-03-20] MEDS ORDERED: Fentanyl 100 MCG/2 ML VIAL SLOW IVP PRN (17:42)
[2018-03-20] MEDS ORDERED: HYDROcodone/Acetaminophen 5/325 mg Tablet PO PRN (17:42)
[2018-03-20] MEDS ORDERED: ALPRAZolam 0.25 MG TAB PO PRN (17:48)
[2018-03-20] MEDS: HYDROcodone/Acetaminophen 5/325 mg Tablet PO PRN ×2 (18:15→22:28)
[2018-03-20 18:35] LABS: Mean Corpuscular HGB CONC 32.7 g/dL (32.0-36.0); Mean Corpuscular Hemoglobin 34.9 pg (27.0-31.0); Mean Platelet Volume 6.7 fL (7.4-10.4); Platelet Count 105 thou/uL (130-400); RBC Distribution Width 12.2 % (11.5-14.5); Red Blood Cell (RBC) Count 3.14 mill/uL (4.70-6.10); White Blood Cell (WBC) Count 10.6 thou/uL (4.8-10.8)
[2018-03-20 19:02] LABS: #Lymphocytes 0.9 thou/uL (1.20-3.40); #Monocytes 0.8 thou/uL (0.11-0.59); #Neutrophils 8.4 thou/uL (1.40-6.50); %Basophils 0.2 % (0.0-1.0); %Eosinophils 0.3 % (0.0-10.0); %Lymphocytes 9.2 % (21.0-51.0); %Monocytes 7.6 % (0.0-10.0); %Neutrophils 82.7 % (42.0-75.0); Hemoglobin 10.8 g/dL (14.0-18.0); Mean Corpuscular HGB CONC 33.2 g/dL (32.0-36.0); Mean Corpuscular Hemoglobin 36.1 pg (27.0-31.0); Platelet Count 104 thou/uL (130-400); RBC Distribution Width 12.3 % (11.5-14.5); White Blood Cell (WBC) Count 10.1 thou/uL (4.8-10.8)
[2018-03-20] MEDS ORDERED: Furosemide 40 MG/4 ML VIAL SLOW IVP SCH (21:00)
[2018-03-20] MEDS: Atorvastatin Calcium 40 MG TAB PO SCH (21:23)
[2018-03-20] MEDS: Famotidine 20 MG TAB PO SCH (21:23)
[2018-03-21] MEDS: Diabetic Tussin 200 MG/10 ML UDCUP PO SCH ×6 (01:07→21:38)
[2018-03-21] MEDS: HYDROcodone/Acetaminophen 5/325 mg Tablet PO PRN ×2 (04:27→08:38)
[2018-03-21 04:54] LABS: #Lymphocytes 0.9 thou/uL (1.20-3.40); #Monocytes 0.7 thou/uL (0.11-0.59); #Neutrophils 8.3 thou/uL (1.40-6.50); %Basophils 0.1 % (0.0-1.0); %Eosinophils 0.3 % (0.0-10.0); %Lymphocytes 9.3 % (21.0-51.0); %Monocytes 7.4 % (0.0-10.0); Hemoglobin 10.8 g/dL (14.0-18.0); Mean Corpuscular HGB CONC 33.8 g/dL (32.0-36.0); Mean Corpuscular Hemoglobin 36.3 pg (27.0-31.0); Mean Platelet Volume 6.8 fL (7.4-10.4); Platelet Count 111 thou/uL (130-400); RBC Distribution Width 12.2 % (11.5-14.5); Red Blood Cell (RBC) Count 2.99 mill/uL (4.70-6.10)
[2018-03-21 04:59] LABS: Anion Gap 12 mmol/L (10-20); BUN (Urea Nitrogen) 38 mg/dL (8.4-25.7); Calc. Creatinine Clearance 126 mL/min (70-130); Calcium 8.9 mg/dL (7.8-10.44); Carbon Dioxide 25 mmol/L (23-31); Chloride 108 mmol/L (98-107); Estimated GFR-MDRD 77; Glucose 133 mg/dL (80-115); Potassium 4.7 mmol/L (3.5-5.1); Sodium 140 mmol/L (136-145)
--- NOTE | 2018-03-21 05:56 | PDOC.CTH ---
Cardiology Progress Note - Subjective Doing well. No complaints except soreness. Pt self extubated shortly after surgery early in the week - Objective Vital Signs Temp Pulse Resp Pulse Ox 03/21/18 02:07 85 19 98 03/21/18 00:00 98.2 F 03/20/18 22:21 98 16 96 03/20/18 20:00 94 L 03/20/18 19:09 102 H 18 95 03/20/18 19:08 106 H 26 H 95 Admit Weight 260 lb Weight 263 lb 14.293 oz 03/19/18 03/20/18 03/21/18 06:59 06:59 06:59 Intake Total 2212.85 1733.8 880 Output Total 1515 1190 2090 Balance 697.85 543.8 -1210 - Physical Examination General/Neuro: alert & oriented x3, NAD Neck: carotid US brisk, no JVD present Lungs: CTA, unlabored respirations Heart: PMI normal, RRR Abdomen: NT/ND, soft Extremities: + femoral B - Labs Result Diagrams: 03/21/18 04:30 03/21/18 04:30 - Assessment/Plan CAD s/p CABG HTN Tobacco abuse COPD On ASA, statin Add BB IP and PT Tobacco cessation
[2018-03-21] MEDS: Budesonide 0.5 MG/2 ML NEB INH SCH ×3 (07:33→18:52)
[2018-03-21] MEDS: Famotidine 20 MG TAB PO SCH ×2 (08:38→21:37)
[2018-03-21] MEDS: Furosemide 40 MG TAB PO SCH ×2 (08:39→15:53)
[2018-03-21] MEDS ORDERED: Bisacodyl 5 MG TAB PO PRN (10:54)
[2018-03-21] MEDS ORDERED: Nitroglycerin 0.4 MG TAB (25 Tab Bottle) SL PRN (10:54)
[2018-03-21] MEDS ORDERED: Bisacodyl 10 MG SUPP PR PRN (10:54)
[2018-03-21] MEDS ORDERED: Zolpidem Tartrate 5 MG TAB PO PRN (10:54)
[2018-03-21] MEDS ORDERED: Promethazine HCl 25 MG/ML VIAL SLOW IVP PRN (10:54)
[2018-03-21] MEDS ORDERED: diphenhydrAMINE 25 MG CAP PO PRN (10:54)
[2018-03-21] MEDS ORDERED: Guaifenesin DM 100-10/5 ML UDCUP PO PRN (10:54)
[2018-03-21] MEDS ORDERED: Mineral Oil ENEMA PR PRN (10:54)
[2018-03-21] MEDS ORDERED: HYDROcodone/Acetaminophen 10/325 mg Tablet PO PRN (10:54)
[2018-03-21] MEDS ORDERED: Mag-Al 1200 mg/1200 mg/30 ML UDCUP PO PRN (10:54)
--- NOTE | 2018-03-21 11:08 | PRG ---
DATE OF SERVICE: 03/21/2018 SERVICE: Pulmonary Medicine. INTERVAL HISTORY: The patient is breathing comfortable. He got out of bed into a chair today. He d id not want to do this, but he was motivated appropriately. He has been weaned down to 1 liter nasal cannula. Denies any current fevers, chills, nausea or vomiting. Otherwise, there were no significa nt overnight events. PHYSICAL EXAMINATION: VITAL SIGNS: Afebrile, pulse 94, blood pressure 149/92, respirations 16, saturation 93% on 1 liter n sharif cannula. GENERAL: The patient is awake, alert, no apparent distress. LUNGS: Excellent air entry. Crackles are present. There is no prolonged expiratory phase or wheezi ng present. HEART: Normal rate, regular. ABDOMEN: Soft, nontender, nondistended. Bowel sounds are positive. MUSCULOSKELETAL: No cyanosis or clubbing. There is diffuse 1-2+ pitting throughout. GENITOURINARY: Darby catheter in place. NEUROLOGIC: Grossly nonfocal. LABORATORY DATA: WBC 10.0, hemoglobin 10.8, platelets 111,000. Basic metabolic profile is essential ly unremarkable. ASSESSMENT: 1. Acute hypoxic respiratory failure, improving. 2. Coronary artery disease, status post coronary artery bypass graft. 3. Tobacco abuse. 4. Bronchospasm DISCUSSION AND PLAN: He is transitioning to the floor. We will give him a dose of Lasix. Darby cat heter to be removed. Pulmonary or Critical Care will continue to follow along for the time being.
[2018-03-21] MEDS ORDERED: Gabapentin 300 MG CAP PO SCH (11:15)
[2018-03-21] MEDS ORDERED: Insulin Regular 300 UNITS/3 ML VIAL SC PRN (13:40)
[2018-03-21] MEDS: Gabapentin 300 MG CAP PO SCH ×2 (15:53→21:37)
[2018-03-21] MEDS: cefTRIAXone\\ROCEPHIN 2 GM in Sodium Chloride 0.9% 100 ML IVPB SCH (15:53)
[2018-03-21] MEDS: Potassium Chloride 20 MEQ TAB PO SCH (15:54)
[2018-03-21] MEDS: HYDROcodone/Acetaminophen 10/325 mg Tablet PO PRN (15:54)
[2018-03-21] MEDS ORDERED: Tamsulosin HCl 0.4 MG CAP PO SCH (21:00)
[2018-03-21] MEDS: Atorvastatin Calcium 40 MG TAB PO SCH (21:37)
[2018-03-21] MEDS: Tamsulosin HCl 0.4 MG CAP PO SCH (21:37)
[2018-03-22] MEDS: Diabetic Tussin 200 MG/10 ML UDCUP PO SCH ×6 (01:25→21:01)
[2018-03-22 04:56] LABS: #Lymphocytes 2.4 thou/uL (1.20-3.40); #Monocytes 1.2 thou/uL (0.11-0.59); #Neutrophils 4.5 thou/uL (1.40-6.50); %Eosinophils 0.4 % (0.0-10.0); %Monocytes 14.5 % (0.0-10.0); %Neutrophils 55.1 % (42.0-75.0); Hemoglobin 11.3 g/dL (14.0-18.0); Mean Corpuscular HGB CONC 34.1 g/dL (32.0-36.0); Mean Platelet Volume 6.7 fL (7.4-10.4); Platelet Count 134 thou/uL (130-400); RBC Distribution Width 12.2 % (11.5-14.5); Red Blood Cell (RBC) Count 3.14 mill/uL (4.70-6.10); White Blood Cell (WBC) Count 8.1 thou/uL (4.8-10.8)
[2018-03-22 05:24] LABS: Anion Gap 11 mmol/L (10-20); BUN (Urea Nitrogen) 31 mg/dL (8.4-25.7); Calc. Creatinine Clearance 135 mL/min (70-130); Calcium 8.7 mg/dL (7.8-10.44); Carbon Dioxide 28 mmol/L (23-31); Chloride 105 mmol/L (98-107); Estimated GFR-MDRD 83; Glucose 79 mg/dL (80-115); Potassium 3.8 mmol/L (3.5-5.1); Sodium 140 mmol/L (136-145)
[2018-03-22] MEDS: HYDROcodone/Acetaminophen 10/325 mg Tablet PO PRN ×4 (06:01→21:01)
[2018-03-22] MEDS ORDERED: predniSONE 20 MG TAB PO SCH (08:00)
[2018-03-22] MEDS: Budesonide 0.5 MG/2 ML NEB INH SCH ×2 (08:13→18:43)
[2018-03-22] MEDS: Famotidine 20 MG TAB PO SCH ×2 (08:27→20:57)
[2018-03-22] MEDS: Finasteride 5 MG TAB PO SCH (08:28)
[2018-03-22] MEDS: Gabapentin 300 MG CAP PO SCH ×3 (08:28→20:57)
[2018-03-22] MEDS: Furosemide 40 MG TAB PO SCH ×2 (08:28→14:26)
[2018-03-22] MEDS: Potassium Chloride 20 MEQ TAB PO SCH ×2 (08:28→16:42)
[2018-03-22] MEDS ORDERED: THYROID PORK PO SCH (09:00)
[2018-03-22] MEDS ORDERED: Finasteride 5 MG TAB PO SCH (09:00)
--- NOTE | 2018-03-22 09:02 | PDOC.CTH ---
Cardiology Progress Note - Subjective Doing better this am. Surrounded by family - Objective Vital Signs Temp Pulse Resp BP Pulse Ox 03/22/18 08:14 97 03/22/18 08:13 98 20 97 03/22/18 08:12 98 20 97 03/22/18 04:00 98.3 F 88 18 145/92 H 94 L 03/22/18 00:23 88 12 95 03/22/18 00:00 98.4 F 89 18 125/82 92 L Admit Weight 260 lb Weight 252 lb 14.4 oz 03/21/18 03/22/18 03/23/18 06:59 06:59 06:59 Intake Total 880 2374 Output Total 2210 2760 Balance -0344 -4540 - Physical Examination General/Neuro: alert & oriented x3, NAD Neck: carotid US brisk, no JVD present Lungs: CTA, unlabored respirations Heart: PMI normal, RRR Abdomen: NT/ND, soft Extremities: + femoral B - Labs Result Diagrams: 03/22/18 03:42 03/22/18 03:42 - Assessment/Plan CAD s/p CABG HTN Tobacco abuse COPD Doing well On BB, statin IP, ambulation Tobacco cessation
[2018-03-22] MEDS: Thyroid 60 MG TAB PO SCH (10:23)
--- NOTE | 2018-03-22 13:49 | PRG ---
DATE OF SERVICE: 03/22/2018 SERVICE: Pulmonary Medicine. INTERVAL HISTORY: The patient is doing absolutely wonderful from a respiratory standpoint. He is of f oxygen. His chest pain has improved dramatically. This is mostly with a fentanyl patch. Otherwis e, there has been no interval change to his condition. He is in the IMCU right now, but is only stri ctly because there were no telemetry beds that were available. As such, he is an overflow patient fo r tele. He uses a CPAP at night. This is home unit. I checked his AHI which is a little bit high. It was 3.3 and his baseline is 1. It is likely because of some of his narcotic medications. PHYSICAL EXAMINATION: VITAL SIGNS: Afebrile, pulse 109, blood pressure 143/98, respirations 18, saturation 92% on room air . GENERAL: The patient is awake, alert, in no apparent distress. LUNGS: Decent air entry. Dependent crackles are minimal. There is no prolonged expiratory phase or wheezing appreciated. HEART: Normal rate, regular. ABDOMEN: Soft, nontender, nondistended. Bowel sounds are positive. MUSCULOSKELETAL: No cyanosis or clubbing. No pitting in the bilateral lower extremities. NEUROLOGIC: Grossly nonfocal. LABORATORY DATA: WBC 8.1, hemoglobin 11.3, platelets 134,000. Basic metabolic profile is essentiall y unremarkable with improving creatinine and BUN. ASSESSMENT: 1. Acute hypoxic respiratory failure, resolved. 2. Coronary artery disease, status post coronary artery bypass graft, postoperative day #5. 3. Tobacco abuse. 4. Bronchospasm. DISCUSSION AND PLAN: The patient is doing absolute fantastic from a respiratory standpoint. I have changed his device over to an auto titrating CPAP machine. This was primarily because his AHI creep up a little bit and he is under the influence of narcotic medications and likely requires a slight in crease in pressure. That being said, at this point he has no further requirements for inpatient Pulm onary or Critical Care opinion. He remains minimally volume overloaded, but is on a touch of Lasix o n a daily basis. I will give him a dose of potassium today to prevent him from developing hypokalemi a. At this point, he has no further requirements for Pulmonary or critical care opinion. As such, I will sign off. Please call with additional questions or concerns moving forward.
[2018-03-22] MEDS: cefTRIAXone\\ROCEPHIN 2 GM in Sodium Chloride 0.9% 100 ML IVPB SCH (16:42)
[2018-03-22] MEDS: Atorvastatin Calcium 40 MG TAB PO SCH (20:57)
[2018-03-22] MEDS: Tamsulosin HCl 0.4 MG CAP PO SCH (20:57)
[2018-03-23] MEDS: HYDROcodone/Acetaminophen 10/325 mg Tablet PO PRN ×3 (01:05→10:02)
[2018-03-23] MEDS: Diabetic Tussin 200 MG/10 ML UDCUP PO SCH ×3 (01:44→08:47)
[2018-03-23] MEDS: Budesonide 0.5 MG/2 ML NEB INH SCH (08:08)
[2018-03-23] MEDS: Famotidine 20 MG TAB PO SCH (08:47)
[2018-03-23] MEDS: Furosemide 40 MG TAB PO SCH (08:47)
[2018-03-23] MEDS: Thyroid 60 MG TAB PO SCH (08:47)
[2018-03-23] MEDS: Potassium Chloride 20 MEQ TAB PO SCH (08:48)
[2018-03-23] MEDS: Gabapentin 300 MG CAP PO SCH (08:48)
[2018-03-23] MEDS: Finasteride 5 MG TAB PO SCH (08:48)
--- NOTE | 2018-03-23 09:37 | PDOC.CTH ---
<Dev Ashley - Last Filed: 03/23/18 11:30> Cardiology Progress Note - Objective Vital Signs Temp Pulse Resp BP BP Pulse Ox 03/23/18 08:45 94 L 03/23/18 08:43 98.2 F 119 H 18 144/85 H 94 L 03/23/18 08:09 92 L 03/23/18 08:08 111 H 16 03/23/18 04:00 98 F 101 H 20 145/76 H 94 L 03/23/18 00:35 98 Admit Weight 260 lb Weight 253 lb 8 oz 03/22/18 03/23/18 03/24/18 06:59 06:59 06:59 Intake Total 2374 1120 Output Total 4725 975 Balance -2351 145 - Labs Result Diagrams: 03/22/18 03:42 03/22/18 03:42 - Assessment/Plan pt. seen and eval. by me. He is no longer on the vent. Doing well s/p CABG.Chest with a fw scattered wheezes. RRR with occasional ectopy. Monitor indicates occasional PVC's/. he is stable for d/c. I will see him next week in the office. i agree with the A/P by the RAILRO[employer]RAK[employer]. <Dyana Jones - Last Filed: 03/23/18 13:26> Cardiology Progress Note - Subjective The pt seen and examined. No overnight events. No cardiac complaints. He has walked twice yesterday without any difficulties. - Objective Vital Signs Temp Pulse Resp BP BP Pulse Ox 03/23/18 08:43 98.2 F 119 H 18 144/85 H 94 L 03/23/18 08:09 92 L 03/23/18 08:08 111 H 16 03/23/18 04:00 98 F 101 H 20 145/76 H 94 L 03/23/18 00:35 98 03/22/18 23:20 98.9 F 90 20 127/88 96 Admit Weight 260 lb Weight 253 lb 8 oz 03/22/18 03/23/18 03/24/18 06:59 06:59 06:59 Intake Total 2374 1120 Output Total 4725 975 Balance -2351 145 - Physical Examination General/Neuro: alert & oriented x3 Neck: no JVD present Lungs: CTA (diminished at bases) Heart: RRR Abdomen: soft Extremities: other: (No edema; ARISTIDES @ MSI and Lt saph) - Telemetry Telemetry Rhythm: ST 100-110s - Labs Result Diagrams: 03/22/18 03:42 03/22/18 03:42 - Assessment/Plan 1. CAD with S/p CABG x 3 on 03/17/18 with HANSEN-distal LAD, RSVG-D1, and RSVG- Ramus; Start Coreg 3.125 mg BID from this AM, will change to Bystolic if his COPD becomes worse. Cont. to monitor on tele 2. HTN - Will start Coreg 3.125 mg BID. 3. Hyperlipidemia - on Statin. 4. Hypothyroidism - on Thyroid med 5. BPH - 6. Current smoker - Smoking cessation education given to the pt and family. 7. COPD ex. - managed by horseradish maker CROW reviewed * From Cardiac standpoint, the pt is stable to d/c home. The pt will f/u with Dr Ashley' office within 1-2wks. Review of Systems - Review of Systems Constitutional: reports: no symptoms reported EENTM: reports: no symptoms reported Respiratory: reports: no symptoms reported Cardiac (ROS): reports: no symptoms reported ABD/GI: reports: no symptoms reported : reports: no symptoms reported Musculoskeletal: reports: no symptoms reported Skin: reports: no symptoms reported
[2018-03-23] MEDS ORDERED: Carvedilol 6.25 MG TAB PO SCH ×2 (09:45→17:00)
--- NOTE | 2018-03-23 11:31 | DIS ---
DATE OF ADMISSION: 03/17/2018 DATE OF DISCHARGE: 03/23/2018 DIAGNOSES: 1. Coronary artery disease. 2. Obesity. 3. Hypertension. 4. History of tobacco abuse. 5. Hypothyroidism. 6. Gastroesophageal reflux disease. 7. Benign prostatic hypertrophy. PROCEDURES: Coronary artery bypass grafting x3; 1) left internal mammary artery to LAD at the apex; 2) saphenous vein to diagonal; 3) saphenous vein to ramus. DESCRIPTION OF HOSPITAL STAY: Mr. Patel was admitted for elective coronary bypass. Postoperativel y he remained on the ventilator for 3 days due to reactive airways and his longstanding history of to bacco abuse. After being able to be extubated he actually did much better than anyone expected from a pulmonary standpoint. At the time of discharge he is ambulatory, tolerating a regular diet, having good bowel and bladder function. Incisions are clean and dry without evidence of infection. DISCHARGE MEDICATIONS: 1. Proscar 5 mg every day. 2. Advair 250/50 b.i.d. 3. Gabapentin 800 mg t.i.d. 4. HCTZ 25 mg every day. 5. Lisinopril 10 mg every day. 6. Protonix 40 mg every day. 7. Sulfasalazine 500 mg b.i.d. 8. Flomax 0.4 mg at bedtime. 9. [place] Thyroid 120 mg every day. 10. Lipitor 40 mg at bedtime. 11. Lasix 40 mg b.i.d. for 7 days. 12. Potassium 20 mEq b.i.d. for 7 days. 13. Fentanyl patch 25 mcg every third day - 5 were given. 14. [place] 10/325 1-2 q.6 hours p.r.n. pain. FOLLOWUP: Follow up is with me in [address] Ashley in a month.
[2018-03-23 12:07] VITALS: BP 130/83; TEMP 97.9
[2018-03-23] MEDS ORDERED: Carvedilol 3.125 MG TAB PO SCH (17:00)
== END 2018-03-23 12:50 | disposition home or self-care (01) | DRG 235 ==
LOC: SURG A 03-17 05:52 → CCU 03-17 09:59 → IMCU/EMU 03-21 20:03 → 2NO 03-22 23:53
PROVIDERS: ADMIT Thoracic Surgery (Cardiothoracic Vascular Surgery); ATTEND Thoracic Surgery (Cardiothoracic Vascular Surgery)
PROC: 02100Z9 Bypass Coronary Artery, One Artery from Left Internal Mammary, Open Approach (ICD-10-PCS; principal; 2018-03-17)
PROC: 0211093 Bypass Coronary Artery, Two Arteries from Coronary Artery with Autologous Venous Tissue, Open Approach (ICD-10-PCS; 2018-03-17)
PROC: 5A1945Z Respiratory Ventilation, 24-96 Consecutive Hours (ICD-10-PCS; 2018-03-17)
PROC: 0BH17EZ Insertion of Endotracheal Airway into Trachea, Via Natural or Artificial Opening (ICD-10-PCS; 2018-03-17)
DX: I25.118 Atherosclerotic heart disease of native coronary artery with other forms of angina pectoris (principal); J96.01 Acute respiratory failure with hypoxia; J44.1 Chronic obstructive pulmonary disease with (acute) exacerbation; I10 Essential (primary) hypertension; E78.5 Hyperlipidemia, unspecified; E66.9 Obesity, unspecified; Z68.36 Body mass index [BMI] 36.0-36.9, adult; F17.210 Nicotine dependence, cigarettes, uncomplicated; I95.9 Hypotension, unspecified; J98.01 Acute bronchospasm; Z78.1 Physical restraint status; E03.9 Hypothyroidism, unspecified; K21.9 Gastro-esophageal reflux disease without esophagitis; N40.0 Benign prostatic hyperplasia without lower urinary tract symptoms; Z79.899 Other long term (current) drug therapy; Z88.1 Allergy status to other antibiotic agents; Z88.6 Allergy status to analgesic agent
CPT/HCPCS: 36415; 36416; 36430; 71045; 80048; 82805; 82947; 85025; 85610; 85730; 86850; 86900; 86901; 93005; 93010; 93798; 94002; 94003; 94150; 94640; J0360; J0696; J1630; J1642; J1644; J1815; J1885; J1940; J2001; J2150; J2250; J2270; J2405; J2440; J2704; J2720; J2920; J2930; J3010; J3370; J3475; J3480; J3490; J7050; J7506; J7620; J7626; P9045; S0017; S0028

== ENCOUNTER 2018-04-21 09:45 | Emergency (ER) | payer OTHER, MEDICARE ==
--- NOTE | 2018-04-21 12:09 | ULT ---
DOPPLER ULTRASOUND OF THE LEFT LOWER EXTREMITY: HISTORY: Edema in the left lower extremity. TECHNIQUE: [place]-scale ultrasound with color-flow and spectral Doppler imaging of the deep venous system of the l eft lower extremity is performed. FINDINGS: There is good flow, compression, and augmentation noted in the left common femoral vein, femoral vein , deep femoral vein, popliteal vein, posterior tibial vein, and greater saphenous vein. A cystic mas s is seen in the soft tissues at the medial aspect of the left thigh, measuring 2.6 x 1.1 x 4.3 cm. The etiology of this is uncertain. IMPRESSION: 1. No evidence of deep venous thrombosis in the left lower extremity. 2. Cystic mass in the soft tissues at the medial aspect of the left thigh, of uncertain etiology. POS: SASCHA
== END 2018-04-21 11:42 | disposition home or self-care (01) ==
LOC: ERS 09:45
DX: L72.9 Follicular cyst of the skin and subcutaneous tissue, unspecified (principal); F17.210 Nicotine dependence, cigarettes, uncomplicated; I25.10 Atherosclerotic heart disease of native coronary artery without angina pectoris; K21.9 Gastro-esophageal reflux disease without esophagitis; N40.0 Benign prostatic hyperplasia without lower urinary tract symptoms; E03.9 Hypothyroidism, unspecified; E78.5 Hyperlipidemia, unspecified; I10 Essential (primary) hypertension; J44.9 Chronic obstructive pulmonary disease, unspecified; Z79.899 Other long term (current) drug therapy; Z79.891 Long term (current) use of opiate analgesic
CPT/HCPCS: 93005

== ENCOUNTER 2018-10-16 10:03 | Outpatient (CLI) | payer OTHER ==
--- NOTE | 2018-10-16 10:31 | RAD ---
CHEST PA AND LATERAL: Date: 10/16/18 HISTORY: Dyspnea. COMPARISON: 03/20/18. FINDINGS: Postop midline sternotomy. Heart size is normal. Lungs are clear. IMPRESSION: No acute intrathoracic disease. Stable postop midline sternotomy. Minimal stable biapical pleural thi ckening. POS: C
== END 2018-10-16 10:04 | disposition home or self-care (01) ==
LOC: RAD 10:03
PROVIDERS: ATTEND Internal Medicine Critical Care Medicine
DX: R06.00 Dyspnea, unspecified (principal); J92.9 Pleural plaque without asbestos; Z98.890 Other specified postprocedural states
CPT/HCPCS: 71046

== ENCOUNTER 2021-10-30 13:05 | Observation (INO) | payer OTHER ==
[2021-10-30] MEDS ORDERED: Metoclopramide HCl 10 MG/2 ML VIAL ONE (13:36)
[2021-10-30] MEDS ORDERED: diphenhydrAMINE 50 MG/ML VIAL ONE (13:36)
[2021-10-30] MEDS ORDERED: Magnesium 2 GM/50 ML(in water) 2 GM in Premix Bag 1 BAG IVPB SCH (14:00)
[2021-10-30] MEDS ORDERED: Ondansetron ODT 4 MG TAB PO PRN (14:48)
[2021-10-30] MEDS ORDERED: Ondansetron PF 4 MG/2 ML Vial IVP PRN (14:48)
[2021-10-30] MEDS ORDERED: Senokot S 8.6-50 MG TAB PO PRN (14:48)
[2021-10-30] MEDS ORDERED: Nicotine 14 MG PATCH TD SCH (15:00)
[2021-10-30] MEDS ORDERED: Ketamine 50 MG/ML (10ML VIAL) ONE (15:03)
[2021-10-30 16:51] LABS: Magnesium 2.5 mg/dL (1.6-2.6)
[2021-10-30] MEDS: diphenhydrAMINE 50 MG/ML VIAL IVP SCH (18:08)
[2021-10-30 18:27] LABS: Bacteria/HPF None Seen HPF (None Seen); Bilirubin Negative (Negative); Blood, Urine Negative (Negative); Clarity Clear (Clear); Glucose, Urine (Dipstick) Normal (Negative); Ketone, Urine Negative (Negative); Leukocyte Negative Leu/uL (Negative); Nitrite Negative (Negative); Protein, Urine (Dipstick) Negative (Neg-Trace); RBC/HPF None Seen HPF (0-3); Specific Gravity, Urine 1.015 (1.002-1.036); Squamous Epithelial None Seen HPF (0-3); Urobilinogen Normal mg/dL (Less than 2); WBC/HPF 0-3 HPF (0-3)
[2021-10-30 18:32] VITALS: BMI 33.0
[2021-10-30] MEDS ORDERED: Ketorolac Tromethamine 30 MG/ML VIAL IVP SCH (18:47)
[2021-10-30] MEDS: Prochlorperazine Edisylate 10 MG in Sodium Chloride 0.9% 50 ML IVPB SCH (19:57)
[2021-10-30 20:39] LABS: SARS-CoV-2 NAA Rapid Test Not Detected (NotDetected)
[2021-10-31] MEDS: diphenhydrAMINE 50 MG/ML VIAL IVP SCH ×3 (00:03→13:54)
[2021-10-31] MEDS: Prochlorperazine Edisylate 10 MG in Sodium Chloride 0.9% 50 ML IVPB SCH ×2 (00:03→09:31)
[2021-10-31] MEDS ORDERED: Ketorolac Tromethamine 30 MG/ML VIAL IVP PRN (02:58)
[2021-10-31 05:37] LABS: Hemoglobin 12.3 g/dL (14.0-18.0); Mean Corpuscular HGB CONC 33.4 g/dL (32.0-36.0); Mean Corpuscular Hemoglobin 34.5 pg (27.0-31.0); Platelet Count 172 thou/uL (130-400); RBC Distribution Width 12.3 % (11.5-14.5); Red Blood Cell (RBC) Count 3.58 mill/uL (4.70-6.10); White Blood Cell (WBC) Count 6.4 thou/uL (4.8-10.8)
[2021-10-31 06:00] LABS: Anion Gap 11 mmol/L (10-20); BUN (Urea Nitrogen) 10 mg/dL (8.4-25.7); Calc. Creatinine Clearance 123 mL/min (70-130); Calcium 8.4 mg/dL (7.8-10.44); Carbon Dioxide 25 mmol/L (23-31); Chloride 106 mmol/L (98-107); Glucose 82 mg/dL (80-115); Potassium 4.2 mmol/L (3.5-5.1); Sodium 138 mmol/L (136-145)
[2021-10-31 07:00] LABS: Band 11 % (5-11); Lymphocytes 20 % (21-51); MDiff Complete? YES; Monocytes 25 % (0-10); Neutrophil 44 % (42-75)
[2021-10-31] MEDS ORDERED: Nebivolol HCl 5 MG TAB PO SCH ×2 (09:45→21:00)
[2021-10-31 11:50] VITALS: BP 134/71; TEMP 97.6
[2021-10-31] MEDS ORDERED: Prochlorperazine Edisylate 10 MG in Sodium Chloride 0.9% 50 ML IVPB SCH (13:30)
[2021-10-31] MEDS ORDERED: Gabapentin 400 MG CAP PO SCH (15:00)
[2021-10-31] MEDS ORDERED: Atorvastatin Calcium 40 MG TAB PO SCH (21:00)
[2021-10-31] MEDS ORDERED: Lisinopril 10 MG TAB PO SCH (21:00)
[2021-10-31] MEDS ORDERED: Tamsulosin HCl 0.4 MG CAP PO SCH (21:00)
[2021-11-01] MEDS ORDERED: sulfaSALAzine 500 MG TAB PO SCH (09:00)
[2021-11-01] MEDS ORDERED: Finasteride 5 MG TAB PO SCH (09:00)
[2021-11-01] MEDS ORDERED: Rosuvastatin 20 MG TAB PO SCH (21:00)
== END 2021-10-31 14:45 | disposition home or self-care (01) ==
LOC: ERS 13:05 → NEURO 14:20
PROVIDERS: ADMIT Internal Medicine; ATTEND Internal Medicine
DX: R42 Dizziness and giddiness (principal); R51.9 Headache, unspecified; D53.9 Nutritional anemia, unspecified; I10 Essential (primary) hypertension; E03.9 Hypothyroidism, unspecified; E78.5 Hyperlipidemia, unspecified; I25.10 Atherosclerotic heart disease of native coronary artery without angina pectoris; G62.9 Polyneuropathy, unspecified; G89.29 Other chronic pain; M54.9 Dorsalgia, unspecified; N40.0 Benign prostatic hyperplasia without lower urinary tract symptoms; K21.9 Gastro-esophageal reflux disease without esophagitis; F17.210 Nicotine dependence, cigarettes, uncomplicated; M47.812 Spondylosis without myelopathy or radiculopathy, cervical region; Z79.890 Hormone replacement therapy; Z79.899 Other long term (current) drug therapy; Z88.0 Allergy status to penicillin; Z88.1 Allergy status to other antibiotic agents; Z88.6 Allergy status to analgesic agent; Z95.1 Presence of aortocoronary bypass graft; Z20.822 Contact with and (suspected) exposure to COVID-19
CPT/HCPCS: 36415; 72125; 80048; 82746; 83735; 84443; 85025; 96365; 96366; 96367; 96375; 96376; G0378; J0780; J1200; J1885; J2765; J3475; U0002